=== PATIENT | female | born 1935 | race Caucasian/White ===

== ENCOUNTER 2019-03-04 19:54 | Emergency (ER) | payer OTHER, MEDICARE ==
[~2019-03-04] VITALS: Ht 167.6 cm; Wt 61.9 kg
[~2019-03-04 19:54] MED LIST: ADULT LOW DOSE81 MG PO; ALEVE220 MG PO; AMBIEN 10 MG TA10 MG PO; APAP650 PO; AVELOX 400 MG400 M1 PO; AZITHROMYCIN 2250 MG PO; CALCIUM +D & M1 EAC1 PO; DIAZEPAM 5 MG5 M1 PO; FISH OIL 1,0001 EAC5 PO; FOSAMAX 70 MG T70 M1 PO; GLYCOLAX POWDER17 G1 PO; MULTIVITAMINS PO; MULTIVITAMINS1 EAC7 PO; OMEGA 3 PO; OMEPRAZOLE40 MG PO; PERCOCET 10-321 EACH PO; PROMETHAZINE12.5 M1 PO; SIMVASTATIN20 MG PO; TRIAMTERENE-HC1 EAC1 PO
[2019-03-04] MEDS ORDERED: ANASTROZOLE PO (20:09)
[2019-03-04 20:22] LABS: HEMATOCRIT 42.7 % (37.0-47.0); HEMOGLOBIN 14.6 gm/dL (12.0-15.0); MCH 31.1 pg (26.0-34.0); MCHC 34.3 g/dL (28.0-37.0); MCV 90.8 fL (80.0-100.0); RDW 13.8 % (10.5-14.5); WBC 7.6 thou/uL (4.0-11.0)
[2019-03-04 20:31] LABS: ANION GAP 12 mmol/L (7-16); BUN 20 mg/dL (7-18); CALCIUM 9.6 mg/dL (8.5-10.1); CHLORIDE 97 mmol/L (98-107); CO2 26 mmol/L (21-32); CREATININE 1.4 mg/dL (0.6-1.0); GLUCOSE 118 mg/dL (74-106); POTASSIUM 4.1 mmol/L (3.5-5.1); SODIUM 135 mmol/L (136-145)
[2019-03-04 20:40] LABS: TROPONIN-I <0.06 ng/mL (<0.06)
[2019-03-04 20:59] LABS: ABSOLUTE NEUTROPHILS 5.2 thou/uL (1.4-8.2); LARGE PLATELETS OCCASIONAL; PLATELET ESTIMATE NORMAL
[2019-03-04 21:00] LABS: PLATELET COUNT 134 thou/uL (150-400)
[2019-03-04 21:24] LABS: URINE BILIRUBIN NEGATIVE (Negative); URINE BLOOD NEGATIVE (Negative); URINE CLARITY CLEAR; URINE COLOR YELLOW; URINE GLUCOSE-RANDOM* NEGATIVE (Negative); URINE KETONES NEGATIVE (Negative); URINE LEUKOCYTES-REFLEX NEGATIVE (Negative); URINE NITRITE-REFLEX NEGATIVE (Negative); URINE PROTEIN (DIPSTICK) NEGATIVE (Negative); URINE SPECIFIC GRAVITY <= 1.005 (1.005-1.035); URINE UROBILINOGEN 0.2 E.U./dl (0.2-1.0)
[2019-03-04] MEDS ORDERED: DELSYM30 MG/5 M1 PO (23:47)
[2019-03-04] MEDS ORDERED: TESSALON PERLE100 MG PO (23:47)
[2019-03-05 00:16] VITALS: BP 155/102
--- NOTE | 2019-03-05 08:56 | EKG ---
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
== END 2019-03-05 00:24 | disposition home or self-care (01) ==
LOC: ER 19:54
PROVIDERS: Emergency Medicine
DX: J06.9 Acute upper respiratory infection, unspecified (principal); R05 Cough; R11.2 Nausea with vomiting, unspecified; I10 Essential (primary) hypertension; E78.5 Hyperlipidemia, unspecified; K21.9 Gastro-esophageal reflux disease without esophagitis; M54.5 Low back pain; G89.29 Other chronic pain; M81.0 Age-related osteoporosis without current pathological fracture; M19.90 Unspecified osteoarthritis, unspecified site; Z90.710 Acquired absence of both cervix and uterus; Z90.11 Acquired absence of right breast and nipple; Z88.0 Allergy status to penicillin; Z88.1 Allergy status to other antibiotic agents; Z88.6 Allergy status to analgesic agent; Z88.8 Allergy status to other drugs, medicaments and biological substances; Z87.891 Personal history of nicotine dependence

== ENCOUNTER 2020-10-19 18:30 | Emergency (ER) | payer OTHER, MEDICARE ==
[~2020-10-19] VITALS: Ht 157.5 cm; Wt 62.6 kg
[~2020-10-19 18:30] MED LIST changes: +ANASTROZOLE PO; +DELSYM30 MG/5 M1 PO; +TESSALON PERLE100 MG PO
[2020-10-19 19:42] LABS: ABSOLUTE NEUTROPHILS 4.5 thou/uL (1.4-8.2); BASOPHILS 0.2 % (0.0-2.0); EOSINOPHILS 0.1 % (0.0-3.0); HEMATOCRIT 40.5 % (37.0-47.0); LYMPHOCYTES 14.3 % (24.0-44.0); MCH 31.6 pg (26.0-34.0); MCHC 34.5 g/dL (28.0-37.0); MCV 91.5 fL (80.0-100.0); MONOCYTES 8.9 % (1.0-8.0); PLATELET COUNT 107 thou/uL (150-400); POLYS 76.5 % (36.0-66.0); RBC 4.43 mil/uL (4.20-5.00); RDW 13.9 % (10.5-14.5); WBC 5.9 thou/uL (4.0-11.0)
[2020-10-19 19:59] LABS: ANION GAP 10 mmol/L (7-16); BUN 23 mg/dL (7-18); CALCIUM 8.5 mg/dL (8.5-10.1); CHLORIDE 99 mmol/L (98-107); CO2 28 mmol/L (21-32); CREATININE 1.4 mg/dL (0.6-1.0); GLUCOSE 115 mg/dL (74-106); POTASSIUM 3.1 mmol/L (3.5-5.1); SODIUM 137 mmol/L (136-145)
[2020-10-19 20:07] LABS: ALBUMIN 3.7 g/dL (3.4-5.0); SGOT 42 U/L (15-37); SGPT 36 U/L (14-59); TOTAL BILIRUBIN 0.6 mg/dL (0.2-1.0); TOTAL PROTEIN 6.9 g/dL (6.4-8.2); TROPONIN-I <0.06 ng/mL (<0.06)
[2020-10-19 21:02] LABS: URINE BILIRUBIN NEGATIVE (Negative); URINE BLOOD NEGATIVE (Negative); URINE CLARITY CLEAR; URINE COLOR YELLOW; URINE GLUCOSE-RANDOM* NEGATIVE (Negative); URINE KETONES TRACE (Negative); URINE NITRITE-REFLEX NEGATIVE (Negative); URINE PROTEIN (DIPSTICK) NEGATIVE (Negative); URINE SPECIFIC GRAVITY <= 1.005 (1.005-1.035); URINE UROBILINOGEN 0.2 E.U./dl (0.2-1.0)
[2020-10-19 21:03] LABS: URINE LEUKOCYTES-REFLEX 2+ (Negative)
[2020-10-19 21:11] LABS: SQUAMOUS 4-10 Moderate /LPF (0-3)
[2020-10-19 21:12] LABS: CASTS None Seen /LPF (None Seen)
[2020-10-19 21:13] LABS: BACTERIA-REFLEX None Seen /HPF (None Seen); CRYSTALS None Seen /LPF (None Seen); RENAL EPITHELIAL CELLS 0-3 Few /LPF (None Seen); URINE RBC None Seen /HPF (NONE SEEN); WBC CLUMPS Few (None Seen)
[2020-10-19] MEDS ORDERED: NORCO 10-325 T1 EACH PO (21:31)
[2020-10-19] MEDS ORDERED: MACROBID 100 M100 MG PO (21:36)
[2020-10-19] MEDS ORDERED: CYCLOBENZAPRINE5 MG PO (22:00)
[2020-10-19 22:11] VITALS: BP 160/70
--- NOTE | 2020-10-20 07:06 | EKG ---
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 : 1935 Requested By: Ronaldo Ramos Order Number: [id number] MD: Gary Castano Measurements Intervals [place] Rate: 71 P: 96 ME: 231 QRS: -13 QRSD: 97 T: 33 QT: 434 QTc: 472 Interpretive Statements Sinus rhythm Prolonged ME interval Compared to ECG 03/04/2019 20:02:13 First degree AV block now present Myocardial infarct finding no longer present Electronically Signed On 10-20-2020 7:06:07 CDT by Gary Castano [email or web address] <ELECTRONICALLY SIGNED> By: Gary Castano MD, [facility] 10/20/20705 10 10 Gary Castano MD, FACC /EPI
== END 2020-10-19 22:45 | disposition home or self-care (01) ==
LOC: ER 18:30
PROVIDERS: Physician Assistant
DX: S01.01XA Laceration without foreign body of scalp, initial encounter (principal); Z20.822 Contact with and (suspected) exposure to COVID-19; N39.0 Urinary tract infection, site not specified; M54.2 Cervicalgia; R42 Dizziness and giddiness; E78.5 Hyperlipidemia, unspecified; I10 Essential (primary) hypertension; M19.90 Unspecified osteoarthritis, unspecified site; K21.9 Gastro-esophageal reflux disease without esophagitis; Z87.891 Personal history of nicotine dependence; Z88.0 Allergy status to penicillin; Z88.8 Allergy status to other drugs, medicaments and biological substances; Z88.6 Allergy status to analgesic agent; Z79.82 Long term (current) use of aspirin; Z79.899 Other long term (current) drug therapy; W18.30XA Fall on same level, unspecified, initial encounter; Y93.89 Activity, other specified; Y92.89 Other specified places as the place of occurrence of the external cause; Y99.9 Unspecified external cause status